=== PATIENT | male | born 1960 | race Two or more races ===

== ENCOUNTER → 2017-08-26 | Outpatient (CLI) | payer OTHER | END | disposition home or self-care (01) | LOC: RAD 501 10:30 | DX: M51.36 Other intervertebral disc degeneration, lumbar region (principal); M50.30 Other cervical disc degeneration, unspecified cervical region; Z98.1 Arthrodesis status ==

== ENCOUNTER 2018-04-26 15:09 | Inpatient (IN) | payer OTHER ==
[~2018-04-26] VITALS: Ht 185.4 cm; Wt 92.5 kg
[2018-04-27] MEDS ORDERED: SYNTHROID50 MCG PO (13:56)
[2018-05-09] MEDS ORDERED: DOCUSATE SODIU100 MG PO (12:21)
[2018-05-09] MEDS ORDERED: PERCOCET 5-3251 EACH PO (12:23)
[2018-05-09] MEDS ORDERED: CLONAZEPAM1 MG PO (12:23)
== END 2018-05-09 14:06 | disposition home or self-care (01) | DRG 455 ==
LOC: O/R 05-08 04:50 → PED 05-08 04:50 → RECOVERY 05-08 07:00 → PED 05-08 10:40 → RECOVERY 05-08 11:15 → PED 05-09 14:06
PROVIDERS: Orthopaedic Surgery Orthopaedic Surgery of the Spine
PROC: 0RG1071 Fusion of Cervical Vertebral Joint with Autologous Tissue Substitute, Posterior Approach, Posterior Column, Open Approach (ICD-10-PCS; 2018-05-08)
PROC: 0RT30ZZ Resection of Cervical Vertebral Disc, Open Approach (ICD-10-PCS; 2018-05-08)
PROC: 07DS3ZZ Extraction of Vertebral Bone Marrow, Percutaneous Approach (ICD-10-PCS; 2018-05-08)
PROC: 0RG10A0 Fusion of Cervical Vertebral Joint with Interbody Fusion Device, Anterior Approach, Anterior Column, Open Approach (ICD-10-PCS; principal; 2018-05-08 07:00)
DX: M47.22 Other spondylosis with radiculopathy, cervical region (principal); M50.122 Cervical disc disorder at C5-C6 level with radiculopathy; E03.8 Other specified hypothyroidism

== ENCOUNTER 2018-07-31 15:05 | Outpatient (CLI) | payer OTHER ==
[~2018-07-31 15:05] MED LIST: CLONAZEPAM1 MG PO; DOCUSATE SODIU100 MG PO; PERCOCET 5-3251 EACH PO; SYNTHROID50 MCG PO
== END 2018-07-31 15:09 | disposition home or self-care (01) ==
LOC: RAD 15:05
DX: M51.36 Other intervertebral disc degeneration, lumbar region (principal); M50.00 Cervical disc disorder with myelopathy, unspecified cervical region; Z98.1 Arthrodesis status

== ENCOUNTER 2020-03-13 06:48 | Emergency (ER) | payer OTHER ==
[~2020-03-13] VITALS: Ht 180.3 cm; Wt 90.7 kg
[2020-03-13] MEDS ORDERED: KETO10TA2 PO (10:37)
== END 2020-03-13 10:51 ==
LOC: ER 06:48
DX: M25.572 Pain in left ankle and joints of left foot (principal)

== ENCOUNTER 2025-05-07 11:30 | Inpatient (IN) | payer OTHER ==
[~2025-05-07] VITALS: Ht 185.4 cm; Wt 93.4 kg
[~2025-05-07 11:30] MED LIST changes: +KETO10TA2 PO
[2025-05-14] MEDS ORDERED: MEDROLPACK PO (07:32)
[2025-05-14] MEDS ORDERED: PERCOCET 5-3251 EACH PO (07:32)
[2025-05-14] MEDS ORDERED: COLACE100 MG PO (07:32)
[2025-05-14] MEDS ORDERED: AMOX-CLAV 875-1 EACH PO (07:32)
[2025-05-14] MEDS ORDERED: ZOFRAN8 MG PO (07:33)
[2025-05-14] MEDS ORDERED: NEURONTIN800 MG PO (07:33)
[2025-05-14] MEDS ORDERED: GABAPENTIN100 M2 PO (07:33)
[2025-05-14] MEDS ORDERED: PROMETHAZINE HCL 50 MG/ML AMPUL IM PRN (07:45)
[2025-05-14] MEDS ORDERED: 0.9 % SODIUM CHLORIDE 1,000 ML IV SCH (07:45)
[2025-05-14] MEDS ORDERED: ENALAPRILAT DIHYDRATE 1.25 MG/ML VIAL IV PRN (07:45)
[2025-05-14] MEDS ORDERED: CEFAZOLIN SODIUM 1,000 MG in 0.9 % SODIUM CHLORIDE 50 ML IV SCH (09:00)
[2025-05-14] MEDS ORDERED: VANCOMYCIN HCL 1,000 MG VIAL IV SCH (09:00)
[2025-05-14] MEDS ORDERED: TAMSULOSIN HCL 0.4 MG CAP PO SCH (09:00)
[2025-05-14] MEDS ORDERED: DOCUSATE SODIUM 100MG CAP PO SCH (09:00)
[2025-05-14] MEDS ORDERED: METHYLPREDNISOLONE SOD SUCC 125 MG VIAL IV SCH (09:00)
[2025-05-14] MEDS ORDERED: MORPHINE SULFATE 4 MG/ML CARTRIDGE IV SCH (09:00)
[2025-05-14] MEDS ORDERED: IOVERSOL 320 MG/1 ML 50ML DISP.SYRIN IV ONE (14:15)
[2025-05-14] MEDS ORDERED: METHYLPREDNISOLONE ACETATE 80 MG/ML VIAL IU ONE (14:15)
[2025-05-14] MEDS ORDERED: METHYLPREDNISOLONE SOD SUCC 125 MG VIAL IV ONE ×2 (14:15)
[2025-05-14] MEDS ORDERED: VANCOMYCIN HCL 1,000 MG VIAL IR ONE (14:15)
[2025-05-14] MEDS ORDERED: VANCOMYCIN HCL 1,000 MG VIAL IV ONE (14:15)
[2025-05-14] MEDS ORDERED: CEFAZOLIN SODIUM 1,000 MG VIAL IV ONE (14:15)
[2025-05-14] MEDS ORDERED: CEFAZOLIN SODIUM 1,000 MG VIAL ONE (17:33)
[2025-05-14] MEDS ORDERED: METHYLPREDNISOLONE SOD SUCC 125 MG VIAL ONE (17:33)
[2025-05-14] MEDS ORDERED: ACETAMINOPHEN 500 MG GEL..CAP PO SCH (20:00)
[2025-05-14] MEDS ORDERED: GABAPENTIN 800 MG TABLET PO SCH (21:00)
[2025-05-14 23:30] VITALS: BP 140/77; O2SAT 96
[2025-05-15] MEDS ORDERED: SODIUM CHLORIDE 0.45 % 1,000 ML IV SCH
[2025-05-15 01:23] VITALS: BP 130/72; O2SAT 96
[2025-05-15] MEDS ORDERED: LEVOTHYROXINE SODIUM 125 MCG TABLET PO SCH (06:00)
[2025-05-15] MEDS ORDERED: OxyCODONE HCL 5 MG TABLET (ROXICODONE) PO PRN (06:01)
[2025-05-15 06:19] LABS: BASO % 0.0 % (0.1-1.2); EOS # 0.00 (0.04-0.54); EOS % 0.0 % (0.7-7.0); LYMPH # 0.47 (1.18-3.74); LYMPH % 6.1 % (19.3-53.1); MEAN PLATELET VOLUME 10.60 fl (9.4-12.4); MONO # 0.10 (0.24-0.82); MONO % 1.3 % (4.7-12.5); NEUT # 7.16 (1.56-6.13); NEUT % 92.3 % (34.0-71.1); RED CELL DISTRIBUTION WIDTH 12.4 % (11.6-14.4)
[2025-05-15 06:38] LABS: BUN CREA RATIO 15.0 (7.0-25.0); CREATININE SERUM 1.04 mg/dL (0.70-1.30); GFR 71.67; GLUCOSE FASTING 150.0 mg/dL (65-100); OSMOLALITY SERUM 285.0 MOSM/KG (275-295)
[2025-05-15 08:50] VITALS: BP 131/66; O2SAT 97
== END 2025-05-15 16:11 | disposition home or self-care (01) | DRG 402 ==
LOC: O/R 05-14 10:00 → SURH 05-14 11:30 → SURG 05-14 17:42 → O/R 05-14 17:45 → MEDI 05-14 18:54
PROVIDERS: ADMIT Orthopaedic Surgery Orthopaedic Surgery of the Spine; ATTEND Orthopaedic Surgery Orthopaedic Surgery of the Spine
PROC: 0SG30K1 Fusion of Lumbosacral Joint with Nonautologous Tissue Substitute, Posterior Approach, Posterior Column, Open Approach (ICD-10-PCS; 2025-05-14)
PROC: 0ST40ZZ Resection of Lumbosacral Disc, Open Approach (ICD-10-PCS; 2025-05-14)
PROC: 0SP004Z Removal of Internal Fixation Device from Lumbar Vertebral Joint, Open Approach (ICD-10-PCS; 2025-05-14)
PROC: 07DR0ZZ Extraction of Iliac Bone Marrow, Open Approach (ICD-10-PCS; 2025-05-14)
PROC: 0SG30A0 Fusion of Lumbosacral Joint with Interbody Fusion Device, Anterior Approach, Anterior Column, Open Approach (ICD-10-PCS; principal; 2025-05-14 14:00)
DX: M43.07 Spondylolysis, lumbosacral region (principal); M54.17 Radiculopathy, lumbosacral region